=== PATIENT | female | born 1995 | race Two or more races ===

== ENCOUNTER 2019-05-02 22:29 | Emergency (ER) | payer OTHER ==
[~2019-05-02] VITALS: Ht 170.2 cm; Wt 73.5 kg
[2019-05-02] MEDS ORDERED: COZAAR50 MG (22:48)
[2019-05-03] MEDS ORDERED: KETO10TA2 PO (05:31)
== END 2019-05-03 05:39 | disposition home or self-care (01) ==
LOC: ER 22:29
DX: N83.292 Other ovarian cyst, left side (principal); R10.2 Pelvic and perineal pain